=== PATIENT | female | born 1985 | race Caucasian/White ===

== ENCOUNTER → 2016-11-05 | Outpatient (CLI) | payer OTHER ==
[~2016-11-05] MED LIST: MTR600X PO; OXYC5TAB PO; PRENTAB40 PO
--- NOTE | 2016-11-05 09:50 | DIAGNOSTIC IMAGING REPORT ---
CHEST 2 VIEWS ROUTINE CLINICAL HISTORY: ADMINISTRATIVE ENCOUNTER POSITIVE TB TEST. COMPARISON STUDY: No previous studies for comparison. FINDINGS: The cardiac and mediastinal contours are normal. There is no evidence of focal pulmonary consolidation. There is no evidence of failure. No pleural effusions are visualized.[ No calcified granulomas are visualized. There is no conventional radiographic evidence of adenopathy. A safety pin projected over the left neck is felt to be extraneous to the patient IMPRESSION: No active disease in the chest. Electronically signed by: Fran Mendoza M.D. 11/05/2016 9:49 AM Dictated Date/Time: 11/05/2016 9:48 AM
== END | disposition home or self-care (01) ==
LOC: C.RAD 09:18
PROVIDERS: ATTEND Family Medicine
DX: Z02.89 Encounter for other administrative examinations (principal); R76.12 Nonspecific reaction to cell mediated immunity measurement of gamma interferon antigen response without active tuberculosis